=== PATIENT | male | born 1950 | race African-American/Black ===

== ENCOUNTER 2017-01-30 16:05 | Inpatient (IN) | payer OTHER ==
[2017-01-30 17:44] VITALS: BMI 18.6
[2017-01-30] MEDS ORDERED: MAGNESIUM HYDROX 2400MG/30ML ORAL SUSPENSION 30 ML CUP PO PRN (20:08)
[2017-01-30] MEDS ORDERED: guaiFENesin/D-METHORPHAN HB 10 ML UNIT-DOSE CUPS PO PRN (20:08)
[2017-01-30] MEDS ORDERED: MAGNESIUM CITRATE 300 ML BOTTLE PO PRN (20:08)
[2017-01-30] MEDS ORDERED: hydrOXYzine PAMOATE 50 MG CAPSULE (FP) PO PRN (20:08)
[2017-01-30] MEDS ORDERED: P-EPHED 60MG/TRIPROLIDI 2.5MG TABLET PO PRN (20:08)
[2017-01-30] MEDS ORDERED: NICOTINE POLACRILEX 2 MG GUM BUC PRN (20:08)
[2017-01-30] MEDS ORDERED: MENTHOL/PHENOL 1 EACH UD MM PRN (20:08)
[2017-01-30] MEDS ORDERED: chlordiazePOXIDE HCL 25 MG CAPSULE PO PRN (20:08)
[2017-01-30] MEDS ORDERED: MAG HYDROX/AL HYDROX/SIMETH 30 ML UNIT-DOSE CUP PO PRN (20:08)
[2017-01-30] MEDS ORDERED: LOPERAMIDE HCL 2 MG CAPSULE PO PRN (20:08)
--- NOTE | 2017-01-30 20:08 | HP ---
CIWA Score - CIWA Score Nausea/Vomitin-Mild Nausea/No Vomiting Muscle Tremors: 4-Moderate,w/Arms Extend Anxiety: 4-Mod. Anxious/Guarded Agitation: 4-Moderately Restless Paroxysmal Sweats: 1-Minimal Palms Moist Orientation: 0-Oriented Tacttile Disturbances: 0-None Auditory Disturbances: 0-None Visual Disturbances: 0-None Headache: 0-None Present CIWA-Ar Total Score: 14 Admission ROS S - HPI Chief Complaint: withdrawal sx Allergies/Adverse Reactions: Allergies Allergy/AdvReac Type Severity Reaction Status Date / Time sulfamethoxazole Allergy Severe Hives Verified 01/30/17 20:13 [From Bactrim] trimethoprim [From Bactrim] Allergy Severe Hives Verified 01/30/17 20:13 shellfish derived Allergy Unknown ALLERGY TO Verified 01/30/17 20:13 [Shellfish Derived] SHRIMP History of Present Illness: 66 years old male with long history of alcohol cocaine nicotine dependence has asthma weight loss methadone 40 mg denies mental illness is admitted to detox Exam Limitations: No Limitations - Ebola screening Have you traveled outside of the country in the last 21 days: No Have you had contact with anyone from an Ebola affected area: No Have you been sick,other than usual withdrawal symptoms: No Do you have a fever: No - Review of Systems Constitutional: Chills, Loss of Appetite, Changes in sleep, Unintentional Wgt. Loss, Unexplained wgt Loss EENT: reports: No Symptoms Reported Respiratory: reports: SOB with Exertion Cardiac: reports: No Symptoms Reported GI: reports: Nausea, Poor Appetite, Poor Fluid Intake, Abdominal cramping : reports: No Symptoms Reported Musculoskeletal: reports: No Symptoms Reported, Back Pain, Joint Pain, Muscle Pain, Neck Pain Integumentary: reports: Change in Color (right and left arms) Neuro: reports: Tremors Endocrine: reports: No Symptoms Reported Hematology: reports: No Symptoms Reported Psychiatric: reports: No Sypmtoms Reported, Judgement Intact, Mood/Affect Appropiate, Orientated x3 Other Systems: Reviewed and Negative Patient History - Patient Medical History Hx Anemia: No Hx Asthma: Yes (Pt is on Albuterol IH) Hx Chronic Obstructive Pulmonary Disease (COPD): Yes Hx Cancer: No Hx Cardiac Disorders: No Hx Congestive Heart Failure: No Hx Hypertension: No Hx Hypercholesterolemia: Yes (ON MEDS) Hx Pacemaker: No HX Cerebrovascular Accident: No Hx Seizures: No Hx Dementia: No Hx Diabetes: No Hx Gastrointestinal Disorders: No Hx Liver Disease: No Hx Genitourinary Disorders: No Hx Sexually Transmitted Disorders: Yes (Syphilis in 89, treated) Hx Renal Disease (ESRD): No Hx Thyroid Disease: No Hx Human Immunodeficiency Virus (HIV): Yes (epzicom, PROSPER) Hx Hepatitis C: Yes (TX'ED) Hx Depression: No Hx Suicide Attempt: No Hx Bipolar Disorder: No Hx Schizophrenia: No - Patient Surgical History Past Surgical History: No Hx Neurologic Surgery: No Hx Cataract Extraction: No Hx Cardiac Surgery: No Hx Lung Surgery: No Hx Breast Surgery: No Hx Breast Biopsy: No Hx Abdominal Surgery: No Hx Appendectomy: No Hx Cholecystectomy: No Hx Genitourinary Surgery: No Hx Orthopedic Surgery: No - PPD History Previous Implant?: Yes Documented Results: Negative w/proof Implanted On Prior R Admission?: Yes Date: 11/20/15 Results: 0mm PPD to be Administered?: Yes - Smoking Cessation Smoking history: Current every day smoker Have you smoked in the past 12 months: Yes Aproximately how many cigarettes per day: 3 Cigars Per Day: 0 Hx Chewing Tobacco Use: No Initiated information on smoking cessation: Yes 'Breaking Loose' booklet given: 01/30/17 - Substance & Tx. History Hx Alcohol Use: Yes Hx Substance Use: Yes Substance Use Type: Alcohol, Cocaine, Opiates Hx Substance Use Treatment: Yes (04/25-04/29/16 [place]) - Substances Abused Alcohol Route: Oral Frequency: Daily Amount used: 1/2 pint volka Age of first use: 16 Date of Last Use: 01/30/17 Family Disease History - Family Disease History Family Disease History: CA: Mother (STOMACH/ALCOHOLISM ), Other: Father (ALCOHOLISM/ ), Brother (alcoholISM) Admission Physical Exam BHS - Vital Signs Vital Signs: Vital Signs - 24 hr 01/30/17 17:40 Temperature 96.4 F L Pulse Rate 79 Respiratory 18 Rate Blood Pressure 119/60 - Physical General Appearance: Yes: Appropriately Dressed, Mild Distress, Tremorous, Irritable, Sweating, Anxious HEENTM: Yes: Hearing grossly Normal, Normal ENT Inspection, Normocephalic, Normal Voice Respiratory: Yes: Chest Non-Tender, No Respiratory Distress, No Accessory Muscle Use, Wheezing, Hyperresonant Neck: Yes: Supple, Trachea in good position Breast: Yes: Breasts Symetrical Cardiology: Yes: Regular Rhythm, Regular Rate, S1, S2 Abdominal: Yes: Non Tender, Soft Genitourinary: Yes: Within Normal Limits Back: Yes: Normal Inspection Musculoskeletal: Yes: full range of Motion, Gait Steady Extremities: Yes: Normal Inspection, Normal Range of Motion, Non-Tender, Tremors Neurological: Yes: Fully Oriented, Alert, Motor Strength 5/5, Normal Mood/Affect , Normal Response Integumentary: Yes: Warm Lymphatic: Yes: Within Normal Limits - Diagnostic (1) Alcohol dependence with uncomplicated withdrawal Current Visit: Yes Status: Acute (2) Cocaine dependence, uncomplicated Current Visit: Yes Status: Chronic (3) Asthma Current Visit: Yes Status: Chronic Qualifiers: Asthma severity: mild persistent Asthma complication type: with status asthmaticus Qualified Code(s): J45.32 - Mild persistent asthma with status asthmaticus (4) COPD (chronic obstructive pulmonary disease) Current Visit: Yes Status: Chronic Qualifiers: COPD type: emphysema Emphysema type: unilateral Qualified Code(s ): J43.0 - Unilateral pulmonary emphysema [MacLeod's syndrome] (5) HIV disease Current Visit: Yes Status: Chronic Comment: epzicom/edurant patient does not have his own medications (6) Hyperlipidemia Current Visit: Yes Status: Chronic Qualifiers: Hyperlipidemia type: pure hypercholesterolemia (7) Nicotine dependence Current Visit: Yes Status: Acute Qualifiers: Nicotine product type: cigarettes Substance use status: in withdrawal Qualified Code(s): F17.213 - Nicotine dependence, cigarettes, with withdrawal (8) Patient on methadone maintenance therapy Current Visit: Yes Status: Chronic Comment: 40 mg po daily verification pending Cleared for Admission S - Detox or Rehab [facility] Level of Care: Medically Managed Detox Regimen/Protocol: Librium [facility] Breath Alcohol Content Breath Alcohol Content: 0 Urine Drug Screen - Results Drug Screen Negative: No Urine Drug Screen Results: ZEB-Cocaine, OPI-Opiates, MTD-Methadone
[2017-01-30] MEDS: ROSUVASTATIN CA 10 MG TABLET (FP) PO SCH (21:50)
[2017-01-30] MEDS: THIAMINE HCL 100 MG TABLET (FP) PO SCH (21:50)
[2017-01-30] MEDS: BUDESONIDE/FORMETEROL FUMARATE 80/4.5 mcg INHALER IH SCH (21:51)
[2017-01-30] MEDS: chlordiazePOXIDE HCL 25 MG CAPSULE PO SCH (22:03)
[2017-01-30] MEDS: diphenhydrAMINE HCL 50 MG CAPSULE PO PRN (22:03)
[2017-01-31 02:26] LABS: URINE APPEARANCE CLEAR; URINE BILIRUBIN NEGATIVE (NEGATIVE); URINE BLOOD NEGATIVE (NEGATIVE); URINE COLOR LTYELLOW; URINE GLUCOSE (UA) NEGATIVE (NEGATIVE); URINE KETONE NEGATIVE (NEGATIVE); URINE NITRITE NEGATIVE (NEGATIVE); URINE PROTEIN NEGATIVE (NEGATIVE); URINE UROBILINOGEN NEGATIVE E.U./dl (0.2-1.0)
[2017-01-31 02:31] LABS: URINE LEUK ESTERASE 1+ (NEGATIVE)
[2017-01-31 02:51] LABS: URINE BACTERIA RARE /hpf (NONE SEEN); URINE MUCUS RARE; URINE RBC 1 /hpf (0-3); URINE WBC 6 /hpf (3-5); YEAST RARE
[2017-01-31] MEDS: chlordiazePOXIDE HCL 25 MG CAPSULE PO SCH ×4 (05:22→22:39)
[2017-01-31] MEDS: ALBUTEROL SO4 2.5/IPRATROPIUM 0.5 INH SOL 3 ML VIAL.NEB. NEB PRN ×3 (05:28→17:31)
[2017-01-31 10:09] LABS: MCH 33.6 pg (25.7-33.7); MCHC 33.5 g/dl (32.0-35.9); MEAN CELL VOLUME 100.1 fl (80-96); PLATELET COUNT 205 K/MM3 (134-434)
[2017-01-31] MEDS: BUDESONIDE/FORMETEROL FUMARATE 80/4.5 mcg INHALER IH SCH ×2 (10:36→22:39)
[2017-01-31] MEDS: NICOTINE 14 MG/24 HOURS TOPICAL PATCH TD SCH (10:37)
[2017-01-31] MEDS: ASPIRIN 81 MG CHEWABLE TABLETS PO SCH (10:37)
[2017-01-31] MEDS: PRENATAL VITAMINS W/ FOLIC ACID TABLET (FP) PO SCH (10:37)
[2017-01-31 10:48] LABS: ALBUMIN 3.4 g/dl (3.4-5.0); ALK PHOS 128 U/L (45-117); ANION GAP 7 (8-16); BILIRUBIN,TOTAL 0.4 mg/dL (0.2-1.0); CALCIUM 9.4 mg/dL (8.5-10.1); CO2 32 mmol/L (21-32); CREATININE 1.4 mg/dL (0.7-1.3); GLUCOSE,RANDOM 124 mg/dL (74-106); SGOT/AST 53 U/L (15-37); SGPT/ALT 39 U/L (12-78); TOT PROT 6.9 g/dl (6.4-8.2)
[2017-01-31] MEDS ORDERED: PNEUMOCOCCAL 23 VACCINE 0.5 ML VIAL IM ONE (12:00)
[2017-01-31] MEDS ORDERED: PNEUMOC 13-VAL CONJ-DIP CRM/PF 0.5 ML DISP.SYRIN IM ONE (12:00)
--- NOTE | 2017-01-31 12:45 | PN ---
[facility] CIWA - CIWA Score Nausea/Vomitin-Mild Nausea/No Vomiting Muscle Tremors: 3 Anxiety: 2 Agitation: 2 Paroxysmal Sweats: 3 Orientation: 0-Oriented Tacttile Disturbances: 2-Mild Itch/Numbness/Burn Auditory Disturbances: 0-None Visual Disturbances: 3-Moderate Sensitivity Headache: 0-None Present CIWA-Ar Total Score: 16 S Progress Note (SOAP) Subjective: Interrupted sleep, Tremors, Sweating, Chills, Constipation, Stomach Cramping. Pt. reports "burning" sensation when urinating X approx. 2 weeks. Pt. denies any other unusual urinary symptoms. Pt. reports history of Kidney stones. Objective: PT. A & O X 3, OBSERVED AMBULATING ON UNIT. NO ACUTE DISTRESS. 01/31/17 12:43 Vital Signs Temperature 97.8 F 01/31/17 09:56 Pulse Rate 88 01/31/17 09:56 Respiratory Rate 18 01/31/17 09:56 Blood Pressure 115/71 01/31/17 09:56 O2 Sat by Pulse Oximetry (%) Laboratory Tests 01/31/17 01/31/17 01/31/17 00:13 07:00 07:00 WBC 4.0 RBC 3.58 L Hgb 12.0 Hct 35.8 MCV 100.1 H MCHC 33.5 RDW 13.0 Plt Count 205 D MPV 7.0 L D Sodium 142 Potassium 3.9 Chloride 103 Carbon Dioxide 32 Anion Gap 7 L BUN 18 Creatinine 1.4 H Creat Clearance w eGFR 51.02 Random Glucose 124 H D Calcium 9.4 Total Bilirubin 0.4 AST 53 H D ALT 39 D Alkaline Phosphatase 128 H D Total Protein 6.9 Albumin 3.4 Urine Color Ltyellow Urine Appearance Clear Urine pH 6.0 Ur Specific [place] 1.010 Urine Protein Negative Urine Glucose (UA) Negative Urine Ketones Negative Urine Blood Negative Urine Nitrite Negative Urine Bilirubin Negative Urine Urobilinogen Negative Ur Leukocyte Esterase 1+ H Urine RBC 1 Urine WBC 6 Ur Epithelial Cells Rare Urine Bacteria Rare Urine Mucus Rare Urine Yeast Rare RPR Titer 01/31/17 07:00 WBC RBC Hgb Hct MCV MCHC RDW Plt Count MPV Sodium Potassium Chloride Carbon Dioxide Anion Gap BUN Creatinine Creat Clearance w eGFR Random Glucose Calcium Total Bilirubin AST ALT Alkaline Phosphatase Total Protein Albumin Urine Color Urine Appearance Urine pH Ur Specific [place] Urine Protein Urine Glucose (UA) Urine Ketones Urine Blood Urine Nitrite Urine Bilirubin Urine Urobilinogen Ur Leukocyte Esterase Urine RBC Urine WBC Ur Epithelial Cells Urine Bacteria Urine Mucus Urine Yeast RPR Titer Nonreactive LABS NOTED. PATIENT REPORTS THAT HE IS A CLIENT IN [facility] MMTP PROGRAM ([phone]), 40 MG PO DAILY - NOT NOTED DURING ADMISSION INTAKE. VERIFICATION OBTAINED BY Haile RODRIGUEZ RN. 01/31/17 13:41 Assessment: 01/31/17 12:43 WITHDRAWAL SYMPTOMS. Plan: CONTINUE DETOX. D/C MAGNESIUM-CONTAINING MEDS. BGM ACBK TOMORROW FOR ELEVATED ADMISSION RANDOM GLUCOSE LEVEL. REPEAT UA ALONG WITH URINE CULTURE FOR ABNORMAL ADMISSION UA LEVELS (LEUK. ESTERASE, WBC). ADVISED PATIENT TO FOLLOW-UP WITH [employer] INSPECTOR AFTER DISCHARGE FROM DETOX FOR GENERAL MEDICAL ASSESSMENT AND FOR ABNORMAL ADMISSION RENAL LAB LEVELS (GFR, CREATININE) .
[2017-01-31] MEDS: METHADONE HCL 40 MG DISPERSABLE TABLET PO SCH (12:58)
[2017-01-31] MEDS: ALBUTEROL SO4 6.7 GM HFA INHALER IH PRN (13:19)
--- NOTE | 2017-01-31 15:52 | EKG ---
Test Reason : Blood Pressure : / mmHG Vent. Rate : 061 BPM Atrial Rate : 061 BPM P-R Int : 140 ms QRS Dur : 084 ms QT Int : 402 ms P-R-T Axes : 076 062 058 degrees QTc Int : 404 ms NORMAL SINUS RHYTHM NORMAL ECG NO PREVIOUS ECGS AVAILABLE Confirmed by SUPRIYA DALEY MD ([id number]) on 01/31/2017 3:51:33 PM Referred By: Confirmed By:SUPRIYA DALEY MD
[2017-01-31] MEDS: THIAMINE HCL 100 MG TABLET (FP) PO SCH (22:39)
[2017-01-31] MEDS: ROSUVASTATIN CA 10 MG TABLET (FP) PO SCH (22:39)
[2017-01-31 23:23] LABS: URINE APPEARANCE CLEAR; URINE BILIRUBIN NEGATIVE (NEGATIVE); URINE BLOOD NEGATIVE (NEGATIVE); URINE COLOR LTYELLOW; URINE GLUCOSE (UA) NEGATIVE (NEGATIVE); URINE KETONE NEGATIVE (NEGATIVE); URINE NITRITE NEGATIVE (NEGATIVE); URINE PROTEIN NEGATIVE (NEGATIVE); URINE UROBILINOGEN NEGATIVE E.U./dl (0.2-1.0)
[2017-01-31 23:24] LABS: URINE LEUK ESTERASE 3+ (NEGATIVE)
[2017-01-31 23:28] LABS: URINE WBC 34 /hpf (3-5)
[2017-02-01] MEDS: ALBUTEROL SO4 6.7 GM HFA INHALER IH PRN (05:16)
[2017-02-01] MEDS: chlordiazePOXIDE HCL 25 MG CAPSULE PO SCH ×3 (05:16→16:57)
[2017-02-01] MEDS: METHADONE HCL 40 MG DISPERSABLE TABLET PO SCH (05:16)
[2017-02-01] MEDS: ALBUTEROL SO4 2.5/IPRATROPIUM 0.5 INH SOL 3 ML VIAL.NEB. NEB PRN ×2 (07:49→21:44)
[2017-02-01] MEDS: ASPIRIN 81 MG CHEWABLE TABLETS PO SCH (10:48)
[2017-02-01] MEDS: PRENATAL VITAMINS W/ FOLIC ACID TABLET (FP) PO SCH (10:48)
[2017-02-01] MEDS: BUDESONIDE/FORMETEROL FUMARATE 80/4.5 mcg INHALER IH SCH ×2 (10:49→22:33)
[2017-02-01] MEDS: NICOTINE 14 MG/24 HOURS TOPICAL PATCH TD SCH (10:50)
--- NOTE | 2017-02-01 15:31 | PN ---
S CIWA - CIWA Score Nausea/Vomitin-Mild Nausea/No Vomiting Muscle Tremors: 2 Anxiety: 2 Agitation: 1-Slight > Activity Paroxysmal Sweats: 3 Orientation: 0-Oriented Tacttile Disturbances: 1-Very Mild Itch/Numbness Auditory Disturbances: 2-Mild Harshness/Frighten Visual Disturbances: 0-None Headache: 3-Moderate CIWA-Ar Total Score: 15 S Progress Note (SOAP) Subjective: Tremors, Stomach Cramping, Tremors, Interrupted Sleep. Objective: PT. A & O X 3, OBSERVED AMBULATING ON UNIT. NO ACUTE DISTRESS. 02/01/17 15:31 Vital Signs Temperature 96.4 F L 02/01/17 13:39 Pulse Rate 98 H 02/01/17 13:39 Respiratory Rate 16 02/01/17 13:39 Blood Pressure 114/75 02/01/17 13:39 O2 Sat by Pulse Oximetry (%) Laboratory Tests 01/31/17 01/31/17 01/31/17 00:13 07:00 07:00 WBC 4.0 RBC 3.58 L Hgb 12.0 Hct 35.8 MCV 100.1 H MCHC 33.5 RDW 13.0 Plt Count 205 D MPV 7.0 L D Sodium 142 Potassium 3.9 Chloride 103 Carbon Dioxide 32 Anion Gap 7 L BUN 18 Creatinine 1.4 H Creat Clearance w eGFR 51.02 POC Glucometer Random Glucose 124 H D Calcium 9.4 Total Bilirubin 0.4 AST 53 H D ALT 39 D Alkaline Phosphatase 128 H D Total Protein 6.9 Albumin 3.4 Urine Color Ltyellow Urine Appearance Clear Urine pH 6.0 Ur Specific [place] 1.010 Urine Protein Negative Urine Glucose (UA) Negative Urine Ketones Negative Urine Blood Negative Urine Nitrite Negative Urine Bilirubin Negative Urine Urobilinogen Negative Ur Leukocyte Esterase 1+ H Urine RBC 1 Urine WBC 6 Ur Epithelial Cells Rare Urine Bacteria Rare Urine Mucus Rare Urine Yeast Rare RPR Titer 01/31/17 01/31/17 02/01/17 07:00 20:43 05:15 WBC RBC Hgb Hct MCV MCHC RDW Plt Count MPV Sodium Potassium Chloride Carbon Dioxide Anion Gap BUN Creatinine Creat Clearance w eGFR POC Glucometer 100 Random Glucose Calcium Total Bilirubin AST ALT Alkaline Phosphatase Total Protein Albumin Urine Color Ltyellow Urine Appearance Clear Urine pH 6.0 Ur Specific [place] 1.010 Urine Protein Negative Urine Glucose (UA) Negative Urine Ketones Negative Urine Blood Negative Urine Nitrite Negative Urine Bilirubin Negative Urine Urobilinogen Negative Ur Leukocyte Esterase 3+ H D Urine RBC None Urine WBC 34 Ur Epithelial Cells Rare Urine Bacteria Urine Mucus Urine Yeast RPR Titer Nonreactive LABS NOTED. RESULT OF REPEAT UA NOTED - AWAITING RESULTS OF URINE CULTURE. RESULT OF BGM ACBK FROM THIS AM NOTED. NO NEED FOR FURTHER ACTION AT THIS TIME. 02/01/17 15:33 Assessment: 02/01/17 15:32 WITHDRAWAL SYMPTOMS. Plan: CONTINUE DETOX. PATIENT ENCOURAGED TO INCREASE PO FLUID INTAKE.
[2017-02-01] MEDS: ACETAMINOPHEN 325 MG TABLET (FP) PO PRN (19:45)
[2017-02-01] MEDS: ROSUVASTATIN CA 10 MG TABLET (FP) PO SCH (22:32)
[2017-02-01] MEDS: THIAMINE HCL 100 MG TABLET (FP) PO SCH (22:32)
[2017-02-01] MEDS: chlordiazePOXIDE 5 MG CAPSULE PO SCH (22:33)
[2017-02-01] MEDS: diphenhydrAMINE HCL 50 MG CAPSULE PO PRN (22:34)
[2017-02-02] MEDS: chlordiazePOXIDE 5 MG CAPSULE PO SCH ×3 (05:35→17:20)
[2017-02-02] MEDS: METHADONE HCL 40 MG DISPERSABLE TABLET PO SCH (05:37)
[2017-02-02] MEDS: ALBUTEROL SO4 6.7 GM HFA INHALER IH PRN ×2 (05:41→16:52)
[2017-02-02] MEDS: ALBUTEROL SO4 2.5/IPRATROPIUM 0.5 INH SOL 3 ML VIAL.NEB. NEB PRN ×2 (08:07→21:20)
[2017-02-02] MEDS: PRENATAL VITAMINS W/ FOLIC ACID TABLET (FP) PO SCH (10:34)
[2017-02-02] MEDS: BUDESONIDE/FORMETEROL FUMARATE 80/4.5 mcg INHALER IH SCH ×2 (10:34→22:29)
[2017-02-02] MEDS: ASPIRIN 81 MG CHEWABLE TABLETS PO SCH (10:34)
[2017-02-02] MEDS: NICOTINE 14 MG/24 HOURS TOPICAL PATCH TD SCH (10:34)
--- NOTE | 2017-02-02 13:20 | PN ---
S Progress Note (SOAP) Subjective: Interrupted Sleep, Tremors, Stomach Cramping. Objective: PT. A & O X 3, OBSERVED AMBULATING ON UNIT. NO ACUTE DISTRESS. 02/02/17 13:17 Vital Signs Temperature 97.6 F 02/02/17 09:44 Pulse Rate 82 02/02/17 09:44 Respiratory Rate 18 02/02/17 09:44 Blood Pressure 103/62 02/02/17 09:44 O2 Sat by Pulse Oximetry (%) Laboratory Tests 01/31/17 01/31/17 01/31/17 00:13 07:00 07:00 WBC 4.0 RBC 3.58 L Hgb 12.0 Hct 35.8 MCV 100.1 H MCHC 33.5 RDW 13.0 Plt Count 205 D MPV 7.0 L D Sodium 142 Potassium 3.9 Chloride 103 Carbon Dioxide 32 Anion Gap 7 L BUN 18 Creatinine 1.4 H Creat Clearance w eGFR 51.02 POC Glucometer Random Glucose 124 H D Calcium 9.4 Total Bilirubin 0.4 AST 53 H D ALT 39 D Alkaline Phosphatase 128 H D Total Protein 6.9 Albumin 3.4 Urine Color Ltyellow Urine Appearance Clear Urine pH 6.0 Ur Specific [place] 1.010 Urine Protein Negative Urine Glucose (UA) Negative Urine Ketones Negative Urine Blood Negative Urine Nitrite Negative Urine Bilirubin Negative Urine Urobilinogen Negative Ur Leukocyte Esterase 1+ H Urine RBC 1 Urine WBC 6 Ur Epithelial Cells Rare Urine Bacteria Rare Urine Mucus Rare Urine Yeast Rare RPR Titer 01/31/17 01/31/17 02/01/17 07:00 20:43 05:15 WBC RBC Hgb Hct MCV MCHC RDW Plt Count MPV Sodium Potassium Chloride Carbon Dioxide Anion Gap BUN Creatinine Creat Clearance w eGFR POC Glucometer 100 Random Glucose Calcium Total Bilirubin AST ALT Alkaline Phosphatase Total Protein Albumin Urine Color Ltyellow Urine Appearance Clear Urine pH 6.0 Ur Specific [place] 1.010 Urine Protein Negative Urine Glucose (UA) Negative Urine Ketones Negative Urine Blood Negative Urine Nitrite Negative Urine Bilirubin Negative Urine Urobilinogen Negative Ur Leukocyte Esterase 3+ H D Urine RBC None Urine WBC 34 Ur Epithelial Cells Rare Urine Bacteria Urine Mucus Urine Yeast RPR Titer Nonreactive 02/02/17 05:36 WBC RBC Hgb Hct MCV MCHC RDW Plt Count MPV Sodium Potassium Chloride Carbon Dioxide Anion Gap BUN Creatinine Creat Clearance w eGFR POC Glucometer 94 Random Glucose Calcium Total Bilirubin AST ALT Alkaline Phosphatase Total Protein Albumin Urine Color Urine Appearance Urine pH Ur Specific [place] Urine Protein Urine Glucose (UA) Urine Ketones Urine Blood Urine Nitrite Urine Bilirubin Urine Urobilinogen Ur Leukocyte Esterase Urine RBC Urine WBC Ur Epithelial Cells Urine Bacteria Urine Mucus Urine Yeast RPR Titer LABS NOTED. RESULT OF URINE CULTURE OBTAINED 01/31/2017 NOTED. NO NEED FOR FURTHER ACTION AT THIS TIME. 02/02/17 13:19 Assessment: 02/02/17 13:18 WITHDRAWAL SYMPTOMS. Plan: CONTINUE DETOX. INCREASE PO FLUID INTAKE.
[2017-02-02] MEDS: chlordiazePOXIDE HCL 10 MG CAPSULE PO SCH (22:28)
[2017-02-02] MEDS: THIAMINE HCL 100 MG TABLET (FP) PO SCH (22:29)
[2017-02-02] MEDS: ROSUVASTATIN CA 10 MG TABLET (FP) PO SCH (22:29)
[2017-02-02] MEDS: diphenhydrAMINE HCL 50 MG CAPSULE PO PRN (22:30)
[2017-02-02] MEDS: ACETAMINOPHEN 325 MG TABLET (FP) PO PRN (23:05)
[2017-02-03] MEDS: METHADONE HCL 40 MG DISPERSABLE TABLET PO SCH (05:41)
[2017-02-03] MEDS: chlordiazePOXIDE HCL 10 MG CAPSULE PO SCH (05:42)
[2017-02-03 06:17] VITALS: BP 103/62; PULSE 79; TEMP 96.6
--- NOTE | 2017-02-03 11:55 | DS ---
[facility] Detox Discharge Summary Admission Date: 01/30/17 Discharge Date: 02/03/17 - History Present History: Alcohol Dependence, Cocaine Dependence, MMTP Pertinent Past History: Asthma COPD HLD HIV Hepatitis C - Physical Exam Results Vital Signs: Vital Signs Temperature 96.6 F L 02/03/17 06:16 Pulse Rate 79 02/03/17 06:16 Respiratory Rate 18 02/03/17 06:16 Blood Pressure 103/62 02/03/17 06:16 O2 Sat by Pulse Oximetry (%) Pertinent Admission Physical Exam Findings: Withdrawal symptoms Laboratory Tests 01/31/17 01/31/17 01/31/17 00:13 07:00 07:00 WBC 4.0 RBC 3.58 L Hgb 12.0 Hct 35.8 MCV 100.1 H MCHC 33.5 RDW 13.0 Plt Count 205 D MPV 7.0 L D Sodium 142 Potassium 3.9 Chloride 103 Carbon Dioxide 32 Anion Gap 7 L BUN 18 Creatinine 1.4 H Creat Clearance w eGFR 51.02 POC Glucometer Random Glucose 124 H D Calcium 9.4 Total Bilirubin 0.4 AST 53 H D ALT 39 D Alkaline Phosphatase 128 H D Total Protein 6.9 Albumin 3.4 Urine Color Ltyellow Urine Appearance Clear Urine pH 6.0 Ur Specific [place] 1.010 Urine Protein Negative Urine Glucose (UA) Negative Urine Ketones Negative Urine Blood Negative Urine Nitrite Negative Urine Bilirubin Negative Urine Urobilinogen Negative Ur Leukocyte Esterase 1+ H Urine RBC 1 Urine WBC 6 Ur Epithelial Cells Rare Urine Bacteria Rare Urine Mucus Rare Urine Yeast Rare RPR Titer 01/31/17 01/31/17 02/01/17 07:00 20:43 05:15 WBC RBC Hgb Hct MCV MCHC RDW Plt Count MPV Sodium Potassium Chloride Carbon Dioxide Anion Gap BUN Creatinine Creat Clearance w eGFR POC Glucometer 100 Random Glucose Calcium Total Bilirubin AST ALT Alkaline Phosphatase Total Protein Albumin Urine Color Ltyellow Urine Appearance Clear Urine pH 6.0 Ur Specific [place] 1.010 Urine Protein Negative Urine Glucose (UA) Negative Urine Ketones Negative Urine Blood Negative Urine Nitrite Negative Urine Bilirubin Negative Urine Urobilinogen Negative Ur Leukocyte Esterase 3+ H D Urine RBC None Urine WBC 34 Ur Epithelial Cells Rare Urine Bacteria Urine Mucus Urine Yeast RPR Titer Nonreactive 02/02/17 02/03/17 05:36 05:40 WBC RBC Hgb Hct MCV MCHC RDW Plt Count MPV Sodium Potassium Chloride Carbon Dioxide Anion Gap BUN Creatinine Creat Clearance w eGFR POC Glucometer 94 96 Random Glucose Calcium Total Bilirubin AST ALT Alkaline Phosphatase Total Protein Albumin Urine Color Urine Appearance Urine pH Ur Specific [place] Urine Protein Urine Glucose (UA) Urine Ketones Urine Blood Urine Nitrite Urine Bilirubin Urine Urobilinogen Ur Leukocyte Esterase Urine RBC Urine WBC Ur Epithelial Cells Urine Bacteria Urine Mucus Urine Yeast RPR Titer Labs noted - Treatment Hospital Course: Detox Protocol Followed, Detoxed Safely, Responded well, Discharged Condition Good - Medication Discharge Medications: Ambulatory Orders Albuterol Sulfate Inhaler - [Ventolin HFA Inhaler -] 1 - 2 inh PO Q4H PRN Rilpivirine HCl [Edurant] 25 mg PO HS 05/26/14 Aspirin [Aspirin EC] 1 tab PO DAILY 11/18/15 Calcium Carb, Citrate/Vit D3 [Calcium + D3 ER Tablet] 1 each PO DAILY 11/18/15 Multivit-Min/Iron Fum/Folic AC [Ujlxe-Ouhxjqq-Faxncjvv Tablet] 1 each PO DAILY 11/18/15 Mv-Mn/FA/Coq10/Lycopene/Lutein [Theragran-M Premier 50+ [place]] 1 each PO DAILY 11/18/15 Rosuvastatin Calcium [Crestor] 10 mg PO DAILY 11/18/15 Mometasone/Formoterol [Dulera 200 Mcg/5 Mcg Inhaler] 2 inh PO BID 11/20/15 Abacavir Sulfate/Lamivudine [Epzicom Tablet] 1 tab PO HS 04/25/16 Alendronate Sodium/Vitamin D3 [Fosamax Plus D 70 mg-5,600 Iu vIT d] 70 mg PO WEEKLY 04/25/16 Docusate Sodium [Colace -] 200 mg PO HS 04/25/16 Zolpidem Tartrate [Ambien] 10 mg PO HS 04/25/16 Methadone [Dolophine -] 40 mg PO DAILY 01/31/17 - Diagnosis (1) Alcohol dependence with uncomplicated withdrawal Status: Acute (2) Nicotine dependence Status: Chronic Qualifiers: Nicotine product type: cigarettes Substance use status: in withdrawal Qualified Code(s): F17.213 - Nicotine dependence, cigarettes, with withdrawal (3) Asthma Status: Chronic Qualifiers: Asthma severity: mild persistent Asthma complication type: with status asthmaticus Qualified Code(s): J45.32 - Mild persistent asthma with status asthmaticus (4) COPD (chronic obstructive pulmonary disease) Status: Chronic Qualifiers: COPD type: emphysema Emphysema type: unilateral Qualified Code(s ): J43.0 - Unilateral pulmonary emphysema [MacLeod's syndrome] (5) Cocaine dependence, uncomplicated Status: Chronic (6) HIV disease Status: Chronic (7) Hyperlipidemia Status: Chronic Qualifiers: Hyperlipidemia type: pure hypercholesterolemia (8) Patient on methadone maintenance therapy Status: Chronic (9) Hepatitis C virus infection without hepatic coma Status: Chronic - AMA Did Patient Leave Against Medical Advice: No
== END 2017-02-03 09:37 | disposition home or self-care (01) | DRG 773 ==
LOC: YASAS 16:05 → Y3N 20:13
PROVIDERS: ADMIT Internal Medicine; ATTEND Internal Medicine
PROC: HZ2ZZZZ Detoxification Services for Substance Abuse Treatment (ICD-10-PCS; principal; 2017-02-03)
DX: F11.20 Opioid dependence, uncomplicated (principal); F10.230 Alcohol dependence with withdrawal, uncomplicated; F14.20 Cocaine dependence, uncomplicated; F17.213 Nicotine dependence, cigarettes, with withdrawal; J45.32 Mild persistent asthma with status asthmaticus; B18.2 Chronic viral hepatitis C; E78.5 Hyperlipidemia, unspecified; E78.00 Pure hypercholesterolemia, unspecified; Z21 Asymptomatic human immunodeficiency virus [HIV] infection status
CPT/HCPCS: 36415; 80053; 81003; 81015; 85027; 86593; 87086; 93005; 93010; 94640